=== PATIENT | male | born 1965 | race Two or more races ===

== ENCOUNTER 2023-12-23 21:44 | Emergency (ER) | payer OTHER ==
[~2023-12-23] VITALS: Ht 175.3 cm; Wt 30.0 kg
[2023-12-23 22:12] VITALS: TEMP 98.1
[2023-12-24 02:00] VITALS: BP 141/81; PULSE 89; RESP 18
[2023-12-24] MEDS ORDERED: IBUP-1493 PO (02:02)
[2023-12-24] MEDS ORDERED: AMOX500C2 PO (02:02)
[2023-12-24] MEDS: CefTRIAXone SODIUM 1 GM/VIAL IM ONE (02:11)
[2023-12-24] MEDS: LIDOCAINE/PF 1% 2 ML VIAL IM ONE (02:12)
[2023-12-24] MEDS: KETOROLAC TROMETHAMINE 30 MG/ML VIAL IM ONE (02:12)
== END 2023-12-24 02:29 | disposition home or self-care (01) ==
LOC: EMS 21:49
DX: K04.7 Periapical abscess without sinus (principal); F17.210 Nicotine dependence, cigarettes, uncomplicated
CPT/HCPCS: 99284; 96372; J0696; J1885; J3490